=== PATIENT | male | born 1960 | race Caucasian/White ===

== ENCOUNTER 2018-07-24 08:00 | Emergency (ER) | payer BC ==
[~2018-07-24] VITALS: Ht 195.6 cm; Wt 108.9 kg
--- NOTE | 2018-07-24 08:00 | NUR ---
Pt arrives a/ox4, ambulatory to room 1b, at bedside for MSE.
--- NOTE | 2018-07-24 08:10 | NUR ---
Dr jones at the bedside for MSE.
[2018-07-24] MEDS ORDERED: [UNRECOGNIZED DRUG - REMARK] (08:14)
--- NOTE | 2018-07-24 08:22 | NUR ---
Code Stroke called by .
--- NOTE | 2018-07-24 08:25 | NUR ---
Pt to CT via anais with corrosion technician and Carmelina GREEN with ACLS guidelines in place.
[2018-07-24 08:31] LABS: BASOPHILS # (AUTO) 0.1 K/uL (0.0-8.0); BASOPHILS % (AUTO) 1.2 % (0.0-2.0); EOSINOPHILS # (AUTO) 0.2 K/uL (0.0-0.7); EOSINOPHILS % (AUTO) 2.7 % (0.0-7.0); HEMATOCRIT 44.5 % (36.7-47.1); HEMOGLOBIN 15.4 g/dL (12.5-16.3); LYMPHOCYTES # (AUTO) 1.4 K/uL (20.0-40.0); LYMPHOCYTES % (AUTO) 25.1 % (20.5-51.5); MEAN CORPUSCULAR HEMOGLOBIN 31.3 uug (23.8-33.4); MEAN CORPUSCULAR HGB CONC 35 g/dL (32.5-36.3); MEAN CORPUSCULAR VOLUME 90.3 fL (73.0-96.2); MONOCYTES # (AUTO) 0.4 K/uL (2.0-10.0); MONOCYTES % (AUTO) 7.1 % (0.0-11.0); NEUTROPHILS # (AUTO) 3.7 K/uL (1.8-8.9); NEUTROPHILS % (AUTO) 63.9 % (38.5-71.5); PLATELET COUNT (AUTO) 235 K/uL (152-348); RED BLOOD CELL COUNT(AUTO) 4.93 MIL/uL (4.06-5.63); WHITE BLOOD COUNT (AUTO) 5.8 K/uL (3.6-10.2)
--- NOTE | 2018-07-24 08:33 | NUR ---
KINGSTON DIALLO spoke Dr Moss at [facility](neurologist).
[2018-07-24 08:34] LABS: CREATININE 1.1 mg/dL (0.6-1.3); POTASSIUM 4.1 mmol/L (3.5-5.1)
[2018-07-24 08:40] LABS: BILIRUBIN,DIRECT 0.2 mg/dL (0.0-0.2); BILIRUBIN,TOTAL 0.7 mg/dL (0.2-1.0)
--- NOTE | 2018-07-24 09:02 | NUR ---
pt back from CT.
--- NOTE | 2018-07-24 09:04 | NUR ---
Dr Moss from tele stroke evaluated the pt via tele medicine screen.
[2018-07-24] MEDS ORDERED: LABETALOL HCL 100 MG/20 ML VIAL IV ONE ×2 (09:30→10:00)
[2018-07-24] MEDS ORDERED: SWABABLE VALVE TRANSFER SET EA MC ONE (09:40)
[2018-07-24] MEDS ORDERED: IV NORMAL SALINE 250 ML IV ONE (09:40)
[2018-07-24] MEDS ORDERED: IOHEXOL 350 100 ML INFUS..BTL ONE (09:40)
--- NOTE | 2018-07-24 09:51 | NUR ---
Pt resting in bed, no c/o pain. Family at the bedside.
[2018-07-24] MEDS ORDERED: LABETALOL HCL 100 MG/20 ML VIAL ONE (10:28)
--- NOTE | 2018-07-24 10:33 | NUR ---
IV removed. Catheter intact and site benign. Pressure and 4x4 gauze applied to site. No bleeding noted.
[2018-07-24 10:34] VITALS: BP 170/95
--- NOTE | 2018-07-24 10:35 | NUR ---
Patient discharged to home in stable conditon. Written and verbal after care instructions given. Patient verbalizes understanding of instructions.
== END 2018-07-24 10:35 | disposition home or self-care (01) ==
LOC: ER 08:00
DX: I20.9 Angina pectoris, unspecified (principal); I67.4 Hypertensive encephalopathy; E78.00 Pure hypercholesterolemia, unspecified
CPT/HCPCS: 36415; 70450; 70496; 70498; 71045; 80048; 80061; 80076; 83605; 84484; 85025; 85730; 87040 ×2; 93005; 96374; 99291; J3490; Q9967; 70030-TC; A4663; J7050